=== PATIENT | male | born 1990 | race Caucasian/White ===

== ENCOUNTER 2019-12-13 22:59 | Emergency (ER) | payer OTHER ==
[~2019-12-13] VITALS: Ht 177.8 cm; Wt 76.2 kg
[2019-12-13] MEDS ORDERED: GLUCOPHAGE500 MG PO (23:32)
[2019-12-13 23:56] VITALS: BP 108/80
== END 2019-12-13 23:56 | disposition home or self-care (01) ==
LOC: M.ERS 22:59
DX: E11.9 Type 2 diabetes mellitus without complications (principal); Z76.0 Encounter for issue of repeat prescription; Z90.49 Acquired absence of other specified parts of digestive tract